=== PATIENT | male | born 1960 ===

== ENCOUNTER → 2024-01-01 10:55 | Outpatient (BNVA) | payer OTHER, SELFPAY | PROVIDERS: PCP Physician Assistant Medical; Visit Provider Internal Medicine ==

== ENCOUNTER 2024-01-01 11:02 | Outpatient (AMB) | payer OTHER, SELFPAY ==
--- NOTE | 2024-01-01 10:57 | MHC.OFFVIS ---
Vital Signs 01/01/24 10:58 Height 6 ft 4 in Weight 310 lb BMI 37.7 BP 139/86 Blood Pressure Location Lt brachial Position Sitting Respiration 14 Pulse 85 Pulse Source Pulse Oximeter Pulse Oximetry (%) 96 Oxygen Delivery Method Room Air Intake Visit Reasons: praveen ankle pain Allergies No Known Allergies Allergy (Verified 01/01/24 10:58) Medication List - Last Reconciled 01/01/24 by Francoise Alonzo LPN meloxicam 7.5 mg PO BID HPI HPI praveen ankle pain: Details: 63-year-old male who presents today to the office for an evaluation of bilateral ankle pain. He reports ankle pain that started about a year ago after vein stripping and ablation due to vascular issues, including edema in his lower extremities. [facility] He was informed that during his hip surgery in the past, they cut through his lymph nodes, which caused his chronic edema retention in the lower extremities. Pain is described as 8-9/10 in intensity around both ankles, especially along the medial malleolus. He is unable to sleep normally or do his daily activities. Putting on stockings seems to help ease the pain a little bit. Pain is less severe in the morning and tends to get worse later in the evening and is up to 9/10 in intensity. Movements also make the thing worse. He has not had Doppler US test after his procedure. He uses compression stocking every day in the morning. He had cortisone injections in the past with moderate temporary relief. He is scheduled for bilateral ankle replacement surgeries in February and May of this year, starting with right side. His job required long-distance driving. He plays golf. [facility] Medical History (Updated 01/09/24 @ 16:28 by Bill Lange MD) Seasonal allergies Obesity Hyperlipidemia Surgical History (Updated 01/01/24 @ 12:33 by Mario Cordon) History of left hip replacement Review of Systems Const All systems reviewed & are unremarkable except as noted in HPI and below Physical Exam Vital Signs: Last Vital Signs Pulse 85 01/01/24 10:58 Resp 14 01/01/24 10:58 BP 139/86 01/01/24 10:58 Pulse Ox 96 01/01/24 10:58 Oxygen Delivery Method Room Air 01/01/24 10:58 BMI result Body Mass Index 37.7 General: Appears afebrile. Alert and oriented. Mood and affect appropriate. Follows and participates in conversation appropriately. Respiratory effort is unlabored. Able to transition from sit to stand unassisted. Ambulates with bilaterally normal heel strike and toe off. There is audible crepitus with the range of motion of the right ankle. Compression stockings are in place. Results Reviewed Results Reviewed: No imaging is available for review. Assessment & Plan Assessment & Plan (1) Arthritis of ankle joint: Code(s): M19.079 - Primary osteoarthritis, unspecified ankle and foot Category: Medical (2) Venous insufficiency of both lower extremities: Code(s): I87.2 - Venous insufficiency (chronic) (peripheral) Category: Medical Plan I recommended optimizing technique for applying compression stockings and educated the patient about this. I also encouraged him to reach out to his vascular surgeon to reassess for any venous reflux or perforators, especially around the ankle areas. Given the fact that he is scheduled for major surgeries on both ankles, I would like him to ensure and rule out any vascular source of his pain prior to undergoing joint replacement surgeries. The patient will reach out to his vascular surgeon to have the venous Doppler study ordered. If he is unable to get that test done through his vascular surgery office, he will call us, and we will order a venous reflux study for him instead. If no concern for vascular source of pain, he may proceed with joint replacement surgeries as already scheduled and see us back afterwards as needed. Scribed for Dr. Lange by Mario Cordon medical artist, on 01/01/2024. I, Dr. Lange, have personally reviewed and agree with the information entered by the scribe. Coding Level of Care Code New Pt Level 4 (42028) Diagnoses Arthritis of ankle joint M19.079 Venous insufficiency of both lower extremities I87.2
[2024-01-01 10:58] VITALS: BP 139/86; PULSE 85; RESP 14; O2SAT 96; BMI 37.7
== END 2024-01-01 12:55 | disposition home or self-care (01) ==
PROVIDERS: PCP Physician Assistant Medical; Visit Provider Internal Medicine
DX: M19.079 Primary osteoarthritis, unspecified ankle and foot (principal); I87.2 Venous insufficiency (chronic) (peripheral)
CPT/HCPCS: 99203